=== PATIENT | male | born 1940 | race Caucasian/White ===

== ENCOUNTER → 2018-12-20 | Outpatient (CLI) | payer MEDICARE, BC ==
--- NOTE | 2018-12-20 13:08 | RADIOLOGY REPORT (SQ) ---
EXAM DESCRIPTION: MRI HEAD WITHOUT COMPLETED DATE/TIME: 12/20/2018 12:53 pm REASON FOR STUDY: R55 SYNCOPE AND COLLAPSE, R29.6 REPEATED FALLS R55 SYNCOPE AND COLLAPSE R29.6 RE PEATED FALLS COMPARISON: None. TECHNIQUE: Multiplanar imaging includes non-contrasted T1, T2, FLAIR, and diffusion with ADC map seq uences. Images stored on PACS. LIMITATIONS: None. FINDINGS: ANATOMY: No anomalies. Normal vascular flow voids. Pituitary fossa normal. CSF SPACES: Lateral ventricles are enlarged secondary to atrophy. CEREBRUM: Cortical atrophy. Extensive areas of increased periventricular white matter signal on FLAI R imaging. No evidence of hemorrhage, mass, or extraaxial fluid collection. POSTERIOR FOSSA: No signal alteration. No hemorrhage. No edema, masses or mass effect. Internal linda tory canals, cerebello-pontine angles, mastoids normal. DIFFUSION IMAGING: Negative for acute or sub-acute infarction. ORBITS: No masses. Globes normal. PARANASAL SINUSES: No fluid levels. Mucosa normal. OTHER: No other significant finding. IMPRESSION: Involutional changes. Extensive increased periventricular white matter signal on FLAIR imaging: Chronic microvascular ischemia/cannot exclude demyelinating disease. EVIDENCE OF ACUTE STROKE: NO. TECHNICAL DOCUMENTATION: JOB ID: [id number] [employer]- All Rights Reserved Reading location - IP/workstation name: [email or web address]
== END ==
LOC: RAD 11:43
PROVIDERS: ATTEND Nurse Practitioner Family
DX: R55 Syncope and collapse (principal); R29.6 Repeated falls
CPT/HCPCS: 70551